=== PATIENT | female | born 1975 | race Caucasian/White ===

== ENCOUNTER 2017-08-29 19:08 | Emergency (ER) | payer SELFPAY ==
[~2017-08-29] VITALS: Ht 160 cm; Wt 99.0 kg
[2017-08-29 19:13] VITALS: Ht 160 cm; Wt 99.0 kg
[2017-08-29] MEDS ORDERED: KETOROLAC 30 MG INJ IM STA (20:17)
--- NOTE | 2017-08-29 20:52 | ERD ---
ER Documentation Chief Complaint Chief Complaint R leg pain x 6 months,cough today HPI Patient is a 42-year-old female with past medical history of hyperlipidemia who presents to the ED for multiple concerns including right lower leg pain, cough and headache. Patient does report pain in her bilateral lower legs however states that her right leg pain is significantly worse. Patient states she has had this pain for 6 months however today is gotten significantly worse. Patient denies any falls or trauma. Patient was told by her primary care physician that she had arthritis. Patient reports taking ibuprofen Tylenol with minimal alleviation of symptoms. Patient also reports a cough for the last 2 years. Patient states her cough is dry in nature. Patient states she occasionally has clear rhinorrhea. Patient denies any chest pain, shortness breath, wheezing, fever, chills, nausea, vomiting or loss consciousness. Patient also reports intermittent headaches for the last 6 months.. Patient denies any photophobia, phonophobia, difficulty speaking, unilateral weakness, difficulty ambulating. ROS All systems reviewed and are negative except as per history of present illness. Medications Home Meds Active Scripts Benzonatate* (Tessalon Perle*) 100 Mg Capsule, 100 MG PO Q8H Y for COUGH, #20 CAP Prov:LEEANNA CABEZAS PA-C 08/29/17 Cetirizine Hcl* (Zyrtec*) 10 Mg Capsule, 10 MG PO DAILY, #20 TAB.CHEW Prov:LEEANNA CABEZAS PA-C 08/29/17 Acetaminophen* (Tylophen*) 500 Mg Capsule, 1 CAP PO Q6H Y for PAIN AND OR ELEVATED TEMP, #20 CAP Prov:LEEANNA CABEZAS PA-C 08/29/17 Tramadol HCl (Tramadol HCl) 50 Mg Tablet, 50 MG PO Q4 Y for PAIN, #20 TAB Prov:LEEANNA CABEZAS PA-C 08/29/17 Allergies Allergies: Coded Allergies: No Known Allergy (Unverified , 08/29/17) PMhx/Soc History of Surgery: No Anesthesia Reaction: No Hx Neurological Disorder: No Hx Respiratory Disorders: No Hx Cardiac Disorders: No Hx Psychiatric Problems: No Hx Miscellaneous Medical Probl: Yes (DM, arthritis) Hx Alcohol Use: No Hx Substance Use: No Hx Tobacco Use: No Smoking Status: Never smoker Physical Exam Vitals Vital Signs Date Time Temp Pulse Resp B/P Pulse Ox O2 Delivery O2 Flow Rate FiO2 08/29/17 22:10 98.0 81 18 126/58 96 Room Air 08/29/17 19:13 98.0 90 18 158/76 98 Physical Exam GENERAL: Well-developed, well-nourished female. Appears in no acute distress. HEAD: Normocephalic, atraumatic. EYES: Pupils are equally reactive bilaterally. EOMs grossly intact. No conjunctival erythema. ENT: Moist mucous membranes. No uvula deviation. No kissing tonsils. NECK: Supple. No meningismus. Normal range of motion of the neck. LUNG: Clear to auscultation bilaterally. No rhonchi, wheezing, rales or coarse breath sounds. HEART: Regular rate and rhythm. No murmurs, rubs or gallops. EXTREMITIES: Equal pulses bilaterally. No peripheral clubbing, cyanosis or edema. No unilateral leg swelling. No pain with dorsiflexion. NEUROLOGIC: Alert and oriented x3, cooperative. Mood and affect appropriate to situation. Cranial nerves II through XII are grossly intact. Normal speech. Motor exam: 5/5 strength in upper and lower extremities. Sensory exam: Sensation intact to light touch on all four extremities. Steady gait. No pronator drift. SKIN: Normal color. Warm and dry. No rashes or lesions. RIGHT LEG: No deformity, erythema, ecchymosis or swelling. Skin intact. Normal range of motion of the knee and ankle. Tender to palpation of the medial knee, tibia/fibula. Nontender palpation of the ankle, midfoot or fifth metatarsal. Sensation intact to light touch. Neurovascularly intact. (Able to plantarflex, dorsiflex, adal foot, invert foot, raise big toe.) 2+ DP and DT pulses. Results 24 hrs Current Medications Medications (Trade) Dose Ordered Sig/Eliud Route PRN Reason Start Time Stop Time Status Last Admin Dose Admin Ketorolac Tromethamine (Toradol) 30 mg ONCE STAT IM 08/29/17 20:17 08/29/17 20:21 DC 08/29/17 20:32 Procedures/MDM ED COURSE: The patient was stable throughout ED course. I kept the patient and/or family informed of laboratory and diagnostic imaging results throughout the ED course. DIAGNOSTIC IMAGING: Read by radiologist. PROCEDURE: CT brain without contrast CLINICAL INDICATION: Headaches for 6 months TECHNIQUE: A CT of the brain was performed utilizing axial sections from the skull base through the vertex without contrast. Sagittal and coronal images were also reformatted. One or more of the following dose reduction techniques were used: Automated exposure control, adjustment of the mA and/or kV according to patient size, use of iterative reconstruction technique. The exam CTDIvol = 44.63 mGy and DLP = 720.23 mGy-cm. COMPARISON: None available FINDINGS: No acute intracranial hemorrhage is identified. There is no mass effect or midline shift. No extra-axial fluid collection is seen. The ventricles and sulci are within normal limits for size and configuration. The density of the brain is within normal limits. Rojas-white differentiation is preserved. The osseous structures are unremarkable. The mastoid air cells and visualized paranasal sinuses are clear. RPTAT:HJJR IMPRESSION: Unremarkable noncontrast CT of the brain. Physician Meaghan Date Time Electronically viewed and signed by Physician Meaghan on 08/29/2017 21:22 JR/ CC: LEEANNA CABEZAS PA-C PROCEDURE: Chest xray. CLINICAL INDICATION: Cough TECHNIQUE: A portable semiupright AP view of the chest was obtained. COMPARISON: None. FINDINGS: The cardiomediastinal silhouette is within normal limits. The lungs are well expanded and show normal vascularity. No focal opacity, pleural effusion, or pneumothorax is identified. The skeletal structures and soft tissues are unremarkable. IMPRESSION: No acute intrathoracic abnormality. RPTAT:HKMK .Jaycee Lara MD, Date Time Electronically viewed and signed by .Jaycee Lara MD, MD on 08/29/2017 21: 13 .K/ CC: LEEANNA CABEZAS PA-C Patient: JOSEF BOUCHER : 1975 Age: 42 Sex: F MR #: [id number] DOS: 08/29/172016 Ordering MD: LEEANNA CABEZAS PA-C Location: [facility] Room/Bed: PROCEDURE: XR Knee. CLINICAL INDICATION: Persistent right knee pain for 6 months TECHNIQUE: AP, lateral and tunnel views of the right knee were obtained. COMPARISON: None. FINDINGS: No fracture or osseous lesion is identified. There is no evidence for dislocation. Mineralization is within normal limits. Small osteophytes along the posterior patella are present with mild patellofemoral osteoarthrosis. No evidence of effusion or soft tissue swelling is identified. RPTAT:HJJR IMPRESSION: Mild patellofemoral osteoarthrosis of the right knee. Mynor Curran Physician Date Time Electronically viewed and signed by Mynor Curran Physician on 08/29/2017 21:20 JR/ CC: LEEANNA CABEZAS PA-C Patient: JOSEF BOUCHER : 1975 Age: 42 Sex: F MR #: [id number] DOS: 08/29/172016 Ordering MD: LEEANNA CABEZAS PA-C Location: [facility] Room/Bed: PROCEDURE: XR Tibia and Fibula. CLINICAL INDICATION: TECHNIQUE: AP, lateral and oblique views of the right tibia and fibula were obtained. COMPARISON: No prior studies are available for comparison. FINDINGS: There is normal mineralization and alignment. No fracture or osseous lesion is identified. The joints are unremarkable. There are normal soft tissues without evidence of soft tissue swelling.. IMPRESSION: 1. No fracture, dislocation, or soft tissue abnormality. RPTAT:AAJJ Bowen Holcomb Physician Date Time Electronically viewed and signed by Physician Leo on 08/29/2017 21:21 ARIELLE/ CC: LEEANNA CABEZAS PA-C PROCEDURES: None. MEDICATIONS GIVEN: Toradol Patient tolerated medication well with no adverse reactions. Patient reported improvement in pain. MEDICAL DECISION MAKING: Patient is a 42-year-old female with past medical history of hyperlipidemia who presents to the ED for multiple concerns including right lower leg pain, cough and headache. Patient reports symptoms intermittent for the last few months. Vital signs were reviewed. Patient was afebrile. Patient is not hypoxic. Full neurological exam was normal. CT brain was negative. CXR was negative. Right knee series showed Mild patellofemoral osteoarthrosis of the right knee. Right tibia and fibula was negative. Given these findings, the patient's presentation is most consistent with osteoarthritis, cough and headaches. Low suspicion for acute fracture, acute dislocation, compartment syndrome. Unable to rule out ligament or tendon injuries at this time. Patient advised to follow-up with an student records specialist and/or obtain MRI and an outpatient basis if knee pain persists. Low suspicion for intracranial hemorrhage, meningitis, intracranial mass, cluster headache. Low suspicion for pneumonia, pneumothorax, pleural effusion, CHF, ACS. PRESCRIPTIONS: Tramadol, Zyrtec, Tessalon Perles, Tylenol DISCHARGE: At this time, patient is stable for discharge and outpatient management. Patient was given a copy of all his studies obtained today. I have encouraged the patient to hydrate well. I have instructed the patient to follow-up with his /her primary care physician in 1-2 days. If symptoms persist, patient may need to see a specialist for further examinations and testing. I have instructed the patient to promptly return to the ER at any time for any new or worsening symptoms including increased increased pain, fever, nausea, vomiting, numbness, neck stiffness, visual changes, weakness or LOC. The patient and/or family expressed understanding of and agreement with this plan. All questions were answered. Home care instructions were provided. Patients blood pressure was elevated (>120/80) but appears stable without evidence of hypertensive emergency, hypertensive urgency or end-organ failure. I had discussion with the patient about the risks of hypertension. I have advised the patient to follow up with his/her primary care physician for outpatient monitoring and treatment for hypertension in 2-3 days. I have instructed the patient to return to the ER for any new or worsening symptoms including chest pain, shortness of breath, headache, blurred vision, confusion, nausea, vomiting or LOC. Disclaimer: Inadvertent spelling and grammatical errors are likely due to EHR/ dictation software use and do not reflect on the overall quality of patient care. Also, please note that the electronic time recorded on this note does not necessarily reflect the actual time of the patient encounter. Departure Diagnosis: Primary Impression: Right leg pain Additional Impression: Cough Condition: Stable Patient Instructions: Cough, Chronic, Uncertain Cause, (Adult) LEEANNA CABEZAS PA-C Aug 29, 2017 20:52 Condition: Stable Patient Instructions: Cough, Chronic, Uncertain Cause, (Adult) LEEANNA CABEZAS PA-C Aug 29, 2017 20:52
--- NOTE | 2017-08-29 21:13 | RADRPT ---
PROCEDURE: Chest xray. CLINICAL INDICATION: Cough TECHNIQUE: A portable semiupright AP view of the chest was obtained. COMPARISON: None. FINDINGS: The cardiomediastinal silhouette is within normal limits. The lungs are well expanded and show norm al vascularity. No focal opacity, pleural effusion, or pneumothorax is identified. The skeletal st ructures and soft tissues are unremarkable. IMPRESSION: No acute intrathoracic abnormality. RPTAT:HKMK .Jaycee Lara MD, Date Time Electronically viewed and signed by .Jaycee Lara MD, on 08/29/2017 21:13 .K/
--- NOTE | 2017-08-29 21:21 | RADRPT ---
PROCEDURE: XR Knee. CLINICAL INDICATION: Persistent right knee pain for 6 months TECHNIQUE: AP, lateral and tunnel views of the right knee were obtained. COMPARISON: None. FINDINGS: No fracture or osseous lesion is identified. There is no evidence for dislocation. Mineralization is within normal limits. Small osteophytes along the posterior patella are present with mild patell ofemoral osteoarthrosis. No evidence of effusion or soft tissue swelling is identified. RPTAT:HJJR IMPRESSION: Mild patellofemoral osteoarthrosis of the right knee. Physician Meaghan Date Time Electronically viewed and signed by Physician Meaghan on 08/29/2017 21:20 /
--- NOTE | 2017-08-29 21:21 | RADRPT ---
PROCEDURE: XR Tibia and Fibula. CLINICAL INDICATION: TECHNIQUE: AP, lateral and oblique views of the right tibia and fibula were obtained. COMPARISON: No prior studies are available for comparison. FINDINGS: There is normal mineralization and alignment. No fracture or osseous lesion is identified. The joint s are unremarkable. There are normal soft tissues without evidence of soft tissue swelling.. IMPRESSION: 1. No fracture, dislocation, or soft tissue abnormality. RPTAT:AAJJ Physician Leo Date Time Electronically viewed and signed by Physician Leo on 08/29/2017 21:21 ARIELLE/
--- NOTE | 2017-08-29 21:22 | RADRPT ---
PROCEDURE: CT brain without contrast CLINICAL INDICATION: Headaches for 6 months TECHNIQUE: A CT of the brain was performed utilizing axial sections from the skull base through th e vertex without contrast. Sagittal and coronal images were also reformatted. One or more of the fol lowing dose reduction techniques were used: Automated exposure control, adjustment of the mA and/or kV according to patient size, use of iterative reconstruction technique. The exam CTDIvol = 44.63 mGy and DLP = 720.23 mGy-cm. COMPARISON: None available FINDINGS: No acute intracranial hemorrhage is identified. There is no mass effect or midline shift. No extra -axial fluid collection is seen. The ventricles and sulci are within normal limits for size and con figuration. The density of the brain is within normal limits. Rojas-white differentiation is preser jeanmarie. The osseous structures are unremarkable. The mastoid air cells and visualized paranasal sinuses are clear. RPTAT:HJJR IMPRESSION: Unremarkable noncontrast CT of the brain. Physician Meaghan Date Time Electronically viewed and signed by Physician Meaghan on 08/29/2017 21:22 /
[2017-08-29] MEDS ORDERED: ACET500C5 PO (21:56)
[2017-08-29] MEDS ORDERED: TRAM50TA2 PO (21:56)
[2017-08-29] MEDS ORDERED: BENZ100C70 PO (21:57)
[2017-08-29] MEDS ORDERED: CETI10CA PO (21:57)
[2017-08-29 22:10] VITALS: BP 126/58; PULSE 81; RESP 18; TEMP 98
== END 2017-08-29 22:11 | disposition home or self-care (01) ==
LOC: FTE 19:08
DX: M79.661 Pain in right lower leg (principal); R05 Cough; E11.9 Type 2 diabetes mellitus without complications; R51 Headache
CPT/HCPCS: 70450; 71010; 73562; 73590; J1885; 96372